=== PATIENT | female | born 1955 | race Caucasian/White ===

== ENCOUNTER → 2018-06-14 | Outpatient (CLI) | payer OTHER | END | disposition home or self-care (01) | LOC: LAB 08:48 | PROVIDERS: ATTEND Nurse Practitioner Family | DX: G47.00 Insomnia, unspecified (principal); L65.9 Nonscarring hair loss, unspecified; R53.82 Chronic fatigue, unspecified | CPT/HCPCS: 36415; 82306; 84443 ==

== ENCOUNTER → 2018-07-11 | Outpatient (CLI) | payer OTHER ==
[2018-07-11 07:52] LABS: BASOPHILS # (AUTO) 0.05 x10^3/uL (0-0.1); BASOPHILS % (AUTO) 1 % (0-1); EOSINOPHILS % (AUTO) 2 % (1-7); LYMPHOCYTES # (AUTO) 2.31 x10^3/uL (1-3.4); LYMPHOCYTES % (AUTO) 41 % (22-44); MD NO; MEAN CORPUSCULAR HGB CONC 33.8 g/dL (32.4-35.8); MEAN CORPUSCULAR VOLUME 85.7 fL (80-100); MEAN PLATELET VOLUME 10.1 fL (7.4-10.4); MONOCYTES # (AUTO) 0.35 x10^3/uL (0.2-0.8); MONOCYTES % (AUTO) 6 % (2-9); NEUTROPHILS # (AUTO) 2.87 x10^3/uL (1.8-6.8); NEUTROPHILS % (AUTO) 51 % (42-75); PLATELET COUNT 194 x10^3/uL (130-400); RED BLOOD COUNT 5.06 x10^6/uL (3.82-5.3); RED CELL DISTRIBUTION WIDTH 13.2 % (9.6-15.2)
[2018-07-11 08:03] LABS: ALANINE AMINOTRANSFERASE 25 U/L (12-78); ALBUMIN 3.5 g/dL (3.4-5.0); ANION GAP 8 mmol/L (5-15); CALCIUM 8.5 mg/dL (8.5-10.1); CHLORIDE 110 mmol/L (98-107); CREATININE 0.86 mg/dL (0.55-1.02)
[2018-07-11 08:28] LABS: ALKALINE PHOSPHATASE 107 U/L (45-117); BILIRUBIN,TOTAL 0.6 mg/dL (0.2-1.0); CHOL/HDL RATIO 3.4; CHOLESTEROL, TOTAL 172 mg/dL (140-239); HDL CHOL % 29 % (28-40); HDL CHOLESTEROL (DIRECT) 50 mg/dL (40-60); LDL CHOLESTEROL,CALCULATED 99 mg/dL (54-169); TOTAL PROTEIN 7.1 g/dL (6.4-8.2); TRIGLYCERIDES 116 mg/dL (50-200); VLDL CHOLESTEROL 23 mg/dL (0-25)
== END | disposition home or self-care (01) ==
LOC: LAB 07:34
PROVIDERS: ATTEND Nurse Practitioner Family
DX: F41.9 Anxiety disorder, unspecified (principal); G47.00 Insomnia, unspecified; L65.9 Nonscarring hair loss, unspecified; R53.82 Chronic fatigue, unspecified
CPT/HCPCS: 36415; 80053; 80061; 82607; 83735; 85025; 86803

== ENCOUNTER → 2018-12-17 | Outpatient (CLI) | payer OTHER ==
[2018-12-17 07:41] LABS: BASOPHILS # (AUTO) 0.04 x10^3/uL (0-0.1); BASOPHILS % (AUTO) 1 % (0-1); EOSINOPHILS % (AUTO) 2 % (1-7); LYMPHOCYTES % (AUTO) 38 % (22-44); MD NO; MEAN CORPUSCULAR HEMOGLOBIN 28.3 pg (27.0-34.8); MEAN CORPUSCULAR HGB CONC 32.9 g/dL (32.4-35.8); MEAN CORPUSCULAR VOLUME 86.2 fL (80-100); MEAN PLATELET VOLUME 10.2 fL (7.4-10.4); MONOCYTES # (AUTO) 0.34 x10^3/uL (0.2-0.8); MONOCYTES % (AUTO) 6 % (2-9); NEUTROPHILS # (AUTO) 3.19 x10^3/uL (1.8-6.8); NEUTROPHILS % (AUTO) 54 % (42-75); PLATELET COUNT 208 x10^3/uL (130-400); RED BLOOD COUNT 5.04 x10^6/uL (3.82-5.3); RED CELL DISTRIBUTION WIDTH 13.3 % (9.6-15.2)
[2018-12-17 08:01] LABS: CHLORIDE 110 mmol/L (98-107)
[2018-12-17 08:17] LABS: ALANINE AMINOTRANSFERASE 23 U/L (12-78); ALBUMIN 3.3 g/dL (3.4-5.0); ALKALINE PHOSPHATASE 110 U/L (45-117); ANION GAP 7 mmol/L (5-15); BILIRUBIN,TOTAL 0.6 mg/dL (0.2-1.0); CHOL/HDL RATIO 3.1; CHOLESTEROL, TOTAL 171 mg/dL (140-239); CREATININE 0.83 mg/dL (0.55-1.02); HDL CHOL % 32 % (28-40); HDL CHOLESTEROL (DIRECT) 55 mg/dL (40-60); LDL CHOLESTEROL,CALCULATED 93 mg/dL (54-169); LDL/HDL RATIO 1.7 (0.5-3.0); T4 (THYROXINE) 8.2 mcg/dL (4.8-13.9); TOTAL PROTEIN 7.1 g/dL (6.4-8.2); TRIGLYCERIDES 115 mg/dL (50-200); VLDL CHOLESTEROL 23 mg/dL (0-25)
== END | disposition home or self-care (01) ==
LOC: LAB 07:29
PROVIDERS: ATTEND Nurse Practitioner Family
DX: F32.9 Major depressive disorder, single episode, unspecified (principal); F41.9 Anxiety disorder, unspecified; G47.00 Insomnia, unspecified; M79.89 Other specified soft tissue disorders; R53.82 Chronic fatigue, unspecified
CPT/HCPCS: 36415; 80053; 80061; 82306; 84436; 84443; 84481; 85025

== ENCOUNTER 2019-05-06 06:57 | Outpatient (CLI) | payer OTHER | END 2019-05-06 23:59 | disposition home or self-care (01) | LOC: CVU 06:57 | PROVIDERS: ATTEND Surgery Vascular Surgery | DX: R60.0 Localized edema (principal); M79.604 Pain in right leg; M79.605 Pain in left leg; M19.90 Unspecified osteoarthritis, unspecified site; E11.9 Type 2 diabetes mellitus without complications; E66.9 Obesity, unspecified; Z90.49 Acquired absence of other specified parts of digestive tract; Z90.710 Acquired absence of both cervix and uterus | CPT/HCPCS: 93970 ==

== ENCOUNTER 2019-06-02 07:45 | Outpatient (CLI) | payer OTHER | END 2019-06-02 23:59 | disposition home or self-care (01) | LOC: LAB 07:45 | PROVIDERS: ATTEND Nurse Practitioner | DX: F32.9 Major depressive disorder, single episode, unspecified (principal); R19.7 Diarrhea, unspecified; R79.89 Other specified abnormal findings of blood chemistry | CPT/HCPCS: 36415; 80053; 80061; 82306; 84439; 84443; 85025; 87046; 87328; 87329; 87427 ==

== ENCOUNTER 2019-09-16 07:42 | Outpatient (CLI) | payer OTHER ==
[2019-09-16 08:06] LABS: ALANINE AMINOTRANSFERASE 25 U/L (12-78); ALBUMIN 3.2 g/dL (3.4-5.0); ANION GAP 5 mmol/L (5-15); CALCIUM 8.2 mg/dL (8.5-10.1); CHLORIDE 111 mmol/L (98-107); CREATININE 0.78 mg/dL (0.55-1.02)
[2019-09-16 08:08] LABS: ALKALINE PHOSPHATASE 97 U/L (45-117); BILIRUBIN,TOTAL 0.6 mg/dL (0.2-1.0)
== END 2019-09-16 23:59 | disposition home or self-care (01) ==
LOC: LAB 07:42
PROVIDERS: ATTEND Nurse Practitioner
DX: E55.9 Vitamin D deficiency, unspecified (principal)
CPT/HCPCS: 36415; 80053; 82306; 82330; 83970

== ENCOUNTER → 2019-11-10 | Outpatient (CLI) | payer OTHER | END | disposition home or self-care (01) | LOC: CFH 07:35 | PROVIDERS: ATTEND Nurse Practitioner | DX: Z12.31 Encounter for screening mammogram for malignant neoplasm of breast (principal); M85.88 Other specified disorders of bone density and structure, other site | CPT/HCPCS: 77063; 77067; 77080 ==

== ENCOUNTER → 2020-02-20 | Outpatient (CLI) | payer OTHER | END | disposition home or self-care (01) | LOC: CVU 07:29 | PROVIDERS: ATTEND Nurse Practitioner | DX: I87.2 Venous insufficiency (chronic) (peripheral) (principal) | CPT/HCPCS: 93970 ==

== ENCOUNTER → 2021-01-28 | Outpatient (CLI) | payer OTHER ==
[2021-01-28 08:00] LABS: BASOPHILS % (AUTO) 1 % (0-1); EOSINOPHILS % (AUTO) 2 % (1-7); LYMPHOCYTES % (AUTO) 36 % (22-44); MEAN CORPUSCULAR HEMOGLOBIN 28.9 pg (27.0-34.8); MEAN CORPUSCULAR HGB CONC 33.5 g/dL (32.4-35.8); MEAN PLATELET VOLUME 9.9 fL (7.4-10.4); MONOCYTES % (AUTO) 7 % (2-9); NEUTROPHILS % (AUTO) 54 % (42-75); PLATELET COUNT 198 x10^3/uL (130-400); RED BLOOD COUNT 5.03 x10^6/uL (3.82-5.3); RED CELL DISTRIBUTION WIDTH 13.9 % (9.6-15.2)
[2021-01-28 08:08] LABS: ALANINE AMINOTRANSFERASE 19 U/L (12-78); ALBUMIN 3.4 g/dL (3.4-5.0); ANION GAP 6 mmol/L (5-15); CALCIUM 8.3 mg/dL (8.5-10.1); CHLORIDE 111 mmol/L (98-107); CHOLESTEROL, TOTAL 162 mg/dL (140-239); CREATININE 0.83 mg/dL (0.55-1.02)
[2021-01-28 08:10] LABS: MD NO
[2021-01-28 08:18] LABS: ALKALINE PHOSPHATASE 103 U/L (45-117); BILIRUBIN,TOTAL 0.7 mg/dL (0.2-1.0); HDL CHOL % 33 % (28-40); HDL CHOLESTEROL (DIRECT) 54 mg/dL (40-60); LDL CHOLESTEROL,CALCULATED 87 mg/dL (54-169); LDL/HDL RATIO 1.6 (0.5-3.0); TRIGLYCERIDES 106 mg/dL (50-200); VLDL CHOLESTEROL 21 mg/dL (0-25)
== END | disposition home or self-care (01) ==
LOC: LAB 07:39
PROVIDERS: ATTEND Nurse Practitioner Family
DX: R35.0 Frequency of micturition (principal); L65.9 Nonscarring hair loss, unspecified; H93.13 Tinnitus, bilateral; F33.1 Major depressive disorder, recurrent, moderate
CPT/HCPCS: 36415; 80053; 80061; 83036; 84443; 85025

== ENCOUNTER → 2021-06-17 | Outpatient (CLI) | payer OTHER ==
[2021-06-17 08:29] LABS: BASOPHILS % (AUTO) 1 % (0-1); EOSINOPHILS % (AUTO) 2 % (1-7); LYMPHOCYTES % (AUTO) 43 % (22-44); MEAN CORPUSCULAR HEMOGLOBIN 28.8 pg (27.0-34.8); MEAN CORPUSCULAR HGB CONC 33.4 g/dL (32.4-35.8); MEAN PLATELET VOLUME 9.7 fL (7.4-10.4); MONOCYTES % (AUTO) 6 % (2-9); NEUTROPHILS % (AUTO) 48 % (42-75); PLATELET COUNT 188 x10^3/uL (130-400); RED BLOOD COUNT 4.92 x10^6/uL (3.82-5.3); RED CELL DISTRIBUTION WIDTH 13.4 % (9.6-15.2)
[2021-06-17 08:37] LABS: ALBUMIN 3.3 g/dL (3.4-5.0); ANION GAP 8 mmol/L (5-15); CHLORIDE 110 mmol/L (98-107); CHOLESTEROL, TOTAL 164 mg/dL (140-239)
[2021-06-17 08:48] LABS: ALANINE AMINOTRANSFERASE 22 U/L (12-78); ALKALINE PHOSPHATASE 103 U/L (45-117); BILIRUBIN,TOTAL 0.6 mg/dL (0.2-1.0); CALCIUM 8.7 mg/dL (8.5-10.1); CHOL/HDL RATIO 3.3; CREATININE 0.71 mg/dL (0.55-1.02); HDL CHOL % 30 % (28-40); HDL CHOLESTEROL (DIRECT) 49 mg/dL (40-60); LDL CHOLESTEROL,CALCULATED 89 mg/dL (54-169); LDL/HDL RATIO 1.8 (0.5-3.0); TOTAL PROTEIN 6.9 g/dL (6.4-8.2); TRIGLYCERIDES 132 mg/dL (50-200); VLDL CHOLESTEROL 26 mg/dL (0-25)
== END | disposition home or self-care (01) ==
LOC: LAB 07:49
PROVIDERS: ATTEND Internal Medicine
DX: E55.9 Vitamin D deficiency, unspecified (principal); R73.03 Prediabetes
CPT/HCPCS: 36415; 80053; 80061; 82306; 83036; 84443; 85025